=== PATIENT | female | born 1960 | race American Indian/Alaskan Native ===

== ENCOUNTER 2017-04-01 21:47 | Emergency (ER) | payer MEDICARE ==
[2017-04-02] MEDS ORDERED: NORCO 5/325 PO ONE ×2 (02:29→06:01)
[2017-04-02] MEDS ORDERED: MOTRIN PO ONE (02:29)
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
[2017-04-02 03:04] LABS: Hematocrit 35.5 % (30.3-42.9); Hemoglobin 11.7 gm/dl (10.1-14.3); Mean Corpuscular HGB Conc 33 % (30-34); Mean Corpuscular Volume 76 fl (79-97); Platelet Count 264 K/mm3 (140-440); Red Blood Count 4.68 M/mm3 (3.65-5.03); Red Cell Distribution Width 13.3 % (13.2-15.2)
[2017-04-02 03:06] LABS: Urine Drugs of Abuse Note Disclamer
[2017-04-02 03:10] LABS: Mean Corpuscular Hemoglobin 25 pg (28-32)
[2017-04-02 03:12] LABS: Anion Gap 20 mmol/L; BUN/Creatinine Ratio 16; Blood Urea Nitrogen 8 mg/dL (7-17); Calcium 9.1 mg/dL (8.4-10.2); Carbon Dioxide 23 mmol/L (22-30); Chloride 102.8 mmol/L (98-107); Glucose 81 mg/dL (65-100); Potassium 3.5 mmol/L (3.6-5.0); Sodium 142 mmol/L (137-145)
[2017-04-02 03:19] LABS: Creatine Kinase MB 2.4 ng/mL (0.0-4.0)
[2017-04-02 03:22] LABS: Creatine Kinase 211 units/L (30-135)
[2017-04-02 03:28] LABS: Bilirubin,Urine NEG (Negative); Blood,Urine SM (Negative); Ketones,Urine NEG (Negative); Leukocyte Esterase,Urine NEG (Negative); Mucus,Urine FEW /HPF; Nitrite,Urine NEG (Negative); Protein,Urine <15 mg/dL mg/dL (Negative); Urobilinogen,Urine < 2.0 mg/dL (<2.0)
--- NOTE | 2017-04-02 04:43 | Cat Scan Report ---
FINAL REPORT EXAM: CT CERVICAL SPINE WO CON HISTORY: fall, head injury, loc, neck pain TECHNIQUE: CT imaging is acquired through the cervical spine without contrast. Transaxial, coronal and sagittal reformations are provided. PRIORS: None. FINDINGS: There is reversal of normal cervical lordosis, which is centered at C5. Moderate intervertebral disc space narrowing with associated endplate spondylosis spanning C6-C7. There is associated endplate remodeling. Vertebral body heights are otherwise preserved. No acute fracture identified. Atlanto-dens interval and odontoid process are intact. No perivertebral soft tissue swelling or hematoma identified. Limited soft tissue exam of the visualized neck is unremarkable. Tongue jewelry is noted. IMPRESSION: No acute cervical spine fracture identified. Correlate with physical exam and follow up as warranted.
--- NOTE | 2017-04-02 04:48 | Cat Scan Report ---
FINAL REPORT EXAM: CT HEAD/BRAIN WO CON HISTORY: fall, head injury, loc TECHNIQUE: CT imaging acquired through the head without intravenous contrast. Transaxial reformations are provided. PRIORS: 06/16/2016 FINDINGS: The ventricles, cisterns and sulci are within normal limits. No intraparenchymal or extra-axial mass, hemorrhage, or mass effect. Kwon and white-matter differentiation is within normal limits for patient age. No significant abnormality involving the imaged portions of the paranasal sinuses and mastoid air cells. No skull or facial fracture visualized. Focal thinning of the superior aspect of the right parietal bone inferior to the vertex on axial series 3, images 39-49 is unchanged from prior and may be congenital or related to remote trauma or surgery. IMPRESSION: No acute intracranial abnormality.
[2017-04-02 05:55] VITALS: BP 121/89
--- NOTE | 2017-04-03 07:44 | XRay Report ---
ROUTINE CHEST, TWO VIEWS: HISTORY: Chest pain, left lower rib pain after fall. The trachea, heart, mediastinal contour, lung brown and bony thorax are unremarkable. No displaced rib fracture is detected on x-ray. IMPRESSION: Unremarkable chest x-ray.
--- NOTE | 2017-04-03 07:44 | XRay Report ---
LUMBOSACRAL SPINE, 3 VIEWS: History: Back pain Findings: Osteopenia is suspected. The vertebral bodies, disk spaces and posterior elements are intact. No compression deformity or malalignment. The SI joints are symmetric and unremarkable. Impression: Osteopenia. No acute injury is appreciated.
== END 2017-04-02 06:31 | disposition home or self-care (01) ==
LOC: ED 21:47
DX: S06.0X1A Concussion with loss of consciousness of 30 minutes or less, initial encounter (principal); S16.1XXA Strain of muscle, fascia and tendon at neck level, initial encounter; S20.211A Contusion of right front wall of thorax, initial encounter; I10 Essential (primary) hypertension; M19.90 Unspecified osteoarthritis, unspecified site; F31.9 Bipolar disorder, unspecified; F17.200 Nicotine dependence, unspecified, uncomplicated; Z88.5 Allergy status to narcotic agent; W01.0XXA Fall on same level from slipping, tripping and stumbling without subsequent striking against object, initial encounter; Y93.89 Activity, other specified; Y92.89 Other specified places as the place of occurrence of the external cause; Y99.8 Other external cause status
CPT/HCPCS: 36415; 70450; 71020; 72100; 72125; 80048; 80307; 81001; 82550; 82553; 84484; 85027; 93005; 93010; 99284; G0480; 80320